=== PATIENT | female | born 1970 | race Caucasian/White ===

== ENCOUNTER → 2018-05-27 09:30 | Outpatient (CLI) | payer MEDICAID, SELFPAY ==
--- NOTE | 2018-05-27 09:35 | XR_ITS ---
XR knee LT 4V HISTORY: ITS.REASON: left knee pain/ 4 views weightbearing ORDERING PHYSICIAN: Wei Blanco MD PATIENT AGE: 48 years COMPARISON: None FINDINGS: Mild osteoarthritic changes involving the medial compartment with minimal osteoarthritic change at the patellofemoral joint. No fracture or dislocation. No lytic or blastic change. IMPRESSION: Mild osteoarthritis
== END ==
PROVIDERS: PCP Family Medicine; Visit Provider Orthopaedic Surgery
DX: M25.562 Pain in left knee (principal)
CPT/HCPCS: 73564

== ENCOUNTER → 2018-06-02 13:03 | Outpatient (CLI) | payer MEDICAID, SELFPAY ==
--- NOTE | 2018-06-02 13:07 | MR_ITS ---
MR knee LT wo con HISTORY: Medial left knee pain with instability ITS.REASON: rule out meniscus tear ORDERING PHYSICIAN: Wei Blanco MD PATIENT AGE: 48 years Comparison: 05/27/2018 TECHNIQUE: Standard multiplanar multiecho sequences are performed without contrast. FINDINGS: The cruciate ligaments are intact. The collateral ligaments, quadriceps tendon, and patellar tendon appear intact. No meniscal tear apparent. There are osteoarthritic changes with decrease in the joint space in all 3 compartments along with small osteophytes. Small area of decreased T1 and increased T2 signal is present in the subcortical region of the right medial femoral condyle. This area measures approximately 6 mm suggesting a small area of bone marrow edema and could represent an early osteochondrosis. There is mild thinning of the patellar cartilage suggesting chondromalacia patella. There is very mild lateral subluxation of the patella. There is a small knee joint effusion with a small Santiago's cyst noted measuring 3.9 cm cephalad to caudad and 0.8 cm AP. IMPRESSION: 1. No evidence of internal derangement 2. Mild osteoarthritic changes with small knee joint effusion and small Santiago's cyst 3. Mild chondromalacia patella
== END ==
PROVIDERS: Family Provider Family Medicine; PCP Family Medicine; Visit Provider Orthopaedic Surgery
DX: M25.562 Pain in left knee (principal); G89.29 Other chronic pain
CPT/HCPCS: 73721

== ENCOUNTER → 2023-02-26 23:00 | Outpatient (CLI) | payer BC, SELFPAY ==
[2023-02-26 18:22] LABS: Chloride 99 mmol/L (98-107); Potassium 3.9 mmoL/L (3.5-5.1); Sodium 136 mmol/L (136-145)
[2023-02-26 18:23] LABS: Basophils % 0.5 % (0.1-2.0); Eosinophils # 0.2 K/mm3 (0.0-0.4); Eosinophils % 2.6 % (0.1-12.0); Hematocrit 42.3 % (37.0-47.0); Hemoglobin 13.4 g/dL (12.2-16.2); Lymphocytes # 2.5 K/mm3 (0.7-4.5); Lymphocytes % 36.6 % (10-50); Mean Corpuscular HGB Conc 31.7 g/dL (31.8-35.4); Mean Corpuscular Hemoglobin 30.3 pg (27.0-31.2); Mean Corpuscular Volume 95.6 fl (81-99); Mean Platelet Volume 10.3 fl (7.4-10.4); Monocytes # 0.4 K/mm3 (0.1-1.0); Monocytes % 5.1 % (1.7-9.3); Neutrophils # 3.8 K/mm3 (1.8-7.8); Neutrophils % 55.2 % (37.0-80.0); Platelet Count 217 K/mm3 (142-424); Red Blood Count 4.43 M/mm3 (4.20-5.40); Red Cell Distribution Width 12.2 % (11.5-17.5); White Blood Count 6.9 K/mm3 (4.8-10.8)
[2023-02-26 18:25] LABS: Alanine Aminotransferase 30 U/L (12-78); Albumin Level 4.2 g/dl (3.5-5.0); Albumin/Globulin Ratio 1.3 (1.1-1.8); Alkaline Phosphatase 75 U/L (38-126); Anion Gap 11.9 mEq/L (5-15); Aspartate Amino Transferase 34 U/L (14-36); Bilirubin,Total 0.4 mg/dl (0.2-1.3); Blood Urea Nitrogen 14 mg/dl (7-17); Carbon Dioxide 29 mmol/L (22.0-30.0); Estimated Glomerular Filt Rate 88 ml/min (>60); GFR (African American) 106 ML/MIN (>60); Globulin 3.2 g/dL (1.3-3.2); Total Protein,Serum 7.4 g/dl (6.3-8.2)
[2023-02-26 18:26] LABS: Calcium 9.2 mg/dl (8.4-10.2); Glucose 101 mg/dl (74-100)
[2023-02-26 18:31] LABS: C-Reactive Protein 2.8 mg/L (0-4)
[2023-02-26 18:48] LABS: Erythrocyte Sedimentation Rate 13 mm/hr (0-30)
== END ==
LOC: LAB.DROPOF 02-27 06:39
PROVIDERS: PCP Nurse Practitioner; Visit Provider Nurse Practitioner
DX: G44.52 New daily persistent headache (NDPH) (principal); R47.9 Unspecified speech disturbances; H53.9 Unspecified visual disturbance
CPT/HCPCS: 80053; 85025; 85651; 86140

== ENCOUNTER 2024-02-04 09:58 | Outpatient (CLI) | payer BC, SELFPAY | END 2024-02-04 23:59 | disposition home or self-care (01) | LOC: LAB.DROPOF 02-05 09:59 | PROVIDERS: PCP Nurse Practitioner; Visit Provider Nurse Practitioner | DX: M54.50 Low back pain, unspecified (principal) | CPT/HCPCS: 87086 ==

== ENCOUNTER 2024-07-26 14:03 | Outpatient (CLI) | payer BC, SELFPAY ==
--- NOTE | 2024-07-26 14:07 | XR_ITS ---
FINAL REPORT CLINICAL HISTORY: pain, chronic arthritis COMPARISON: None FINDINGS: Three views of the right knee reveal no evidence of fracture or dislocation. The bony alignment is normal. There is moderate degenerative change. Medial compartment narrowing is noted. There is a small joint effusion. No localized soft tissue abnormality is identified. IMPRESSION: Degenerative changes and small joint effusion. Authenticated and ERN
--- NOTE | 2024-07-26 14:07 | XR_ITS ---
FINAL REPORT CLINICAL HISTORY: pain, chronic arthritis COMPARISON: None FINDINGS: Three views of the left knee reveal no evidence of fracture or dislocation. The bony alignment is normal. There is moderate degenerative change. Medial compartment narrowing is noted. There is a small joint effusion. No localized soft tissue abnormality is seen. IMPRESSION: Degenerative changes with small joint effusion. Authenticated and ERN
== END 2024-07-26 23:59 | disposition home or self-care (01) ==
LOC: RAD 14:04
PROVIDERS: PCP Nurse Practitioner; Visit Provider Orthopaedic Surgery
DX: M25.561 Pain in right knee (principal); M25.562 Pain in left knee
CPT/HCPCS: 73562

== ENCOUNTER 2024-08-25 13:45 | Outpatient (CLI) | payer BC, SELFPAY | END 2024-08-25 23:59 | disposition home or self-care (01) | LOC: LAB.DROPOF 08-26 10:33 | PROVIDERS: PCP Nurse Practitioner; Visit Provider Nurse Practitioner | DX: R35.0 Frequency of micturition (principal) | CPT/HCPCS: 87086 ==